=== PATIENT | female | born 1960 | race Caucasian/White ===

== ENCOUNTER 2022-07-28 04:16 | Day surgery (SDC) | payer BC ==
[2022-07-24 16:13] VITALS: BMI 32.4
[2022-07-28] MEDS ORDERED: MIDAZOLAM HCL 2 MG/2 ML SINGLE DOSE VIAL ONE (07:28)
[2022-07-28] MEDS ORDERED: PROPOFOL 40 ML ONE (07:28)
[2022-07-28] MEDS ORDERED: SUCCINYLCHOLINE CHLORIDE 200 MG/10 ML SYRINGE ONE (07:28)
[2022-07-28] MEDS ORDERED: ONDANSETRON 4 MG/2 ML VIAL IVPUSH PRN ×2 (07:43→07:53)
[2022-07-28] MEDS ORDERED: oxyCODONE HCL 5 MG TABLET PO PRN ×2 (07:43→07:53)
[2022-07-28] MEDS ORDERED: LACTATED RINGERS SOLUTION 1,000 ML IV SCH (07:45)
[2022-07-28] MEDS ORDERED: IBUPROFEN 800 MG/8 ML IJ IVPB PRN (07:53)
[2022-07-28] MEDS ORDERED: IBUPROFEN 600 MG TABLET (FP) PO PRN (07:53)
[2022-07-28] MEDS ORDERED: ELECTROLYTE-148 SOLN 1,000 ML IV SCH (08:00)
[2022-07-28] MEDS ORDERED: PROPOFOL 20 ML ONE (08:36)
[2022-07-28 17:59] VITALS: BP 115/70; PULSE 78; RESP 20; TEMP 96.9
== END 2022-07-28 12:00 | disposition home or self-care (01) ==
LOC: JASU-SURG 04:16
PROVIDERS: ATTEND Obstetrics & Gynecology
PROC: 0UDB7ZX Extraction of Endometrium, Via Natural or Artificial Opening, Diagnostic (ICD-10-PCS; 2022-07-28)
PROC: 0UB98ZX Excision of Uterus, Via Natural or Artificial Opening Endoscopic, Diagnostic (ICD-10-PCS; principal; 2022-07-28 07:30)
DX: N95.0 Postmenopausal bleeding (principal); N84.0 Polyp of corpus uteri
CPT/HCPCS: 86850; 86900; 86901; 88305-TC; 94760